=== PATIENT | male | born 1970 | race Caucasian/White ===

== ENCOUNTER 2017-06-29 21:26 | Emergency (ER) | payer MEDICAID ==
--- NOTE | 2017-06-29 22:34 | NUR ---
CALLED FOR TRIAGE; NO ANSWER. INFRMED PT AWOL
== END 2017-06-29 22:35 | disposition left against medical advice (07) ==
LOC: ER 21:30
DX: Z53.21 Procedure and treatment not carried out due to patient leaving prior to being seen by health care provider (principal)

== ENCOUNTER 2017-06-30 09:31 | Emergency (ER) | payer MEDICAID ==
[~2017-06-30] VITALS: Ht 167.6 cm; Wt 117.9 kg
[2017-06-30 09:44] VITALS: BP 160/89
[2017-06-30] MEDS ORDERED: ONDANSETRON HCL/PF 4 MG/2 ML VIAL ONE (10:08)
[2017-06-30] MEDS ORDERED: KETOROLAC TROMETHAMINE 15 MG/ML VIAL ONE (10:08)
--- NOTE | 2017-06-30 10:15 | NUR ---
NEW IV STARTED ON LEFT HAND, 20G, BLOOD DRAWN AND SENT TO LAB.
[2017-06-30 10:17] LABS: BASOPHILS # (AUTO) 0.2 /CMM (0.0-0.2); BASOPHILS % (AUTO) 2.5 % (0.0-2.0); EOSINOPHILS # (AUTO) 0.1 /CMM (0.0-0.7); EOSINOPHILS % (AUTO) 1.5 % (0.0-6.0); HEMATOCRIT 43 % (39-51); HEMOGLOBIN 14.8 g/dL (13.5-17.5); LYMPHOCYTES # (AUTO) 1.6 /CMM (0.8-4.8); LYMPHOCYTES % (AUTO) 22.8 % (20.0-44.0); MEAN CORPUSCULAR HEMOGLOBIN 28 PG (26.0-33.0); MEAN CORPUSCULAR HGB CONC 34 g/dl (31.0-36.0); MEAN CORPUSCULAR VOLUME 83 fL (80-96); MONOCYTES # (AUTO) 0.4 /CMM (0.1-1.30); MONOCYTES % (AUTO) 6.1 % (2.0-12.0); NEUTROPHILS # (AUTO) 4.6 /CMM (1.8-8.9); NEUTROPHILS % (AUTO) 67.1 % (43.0-81.0); PLATELET COUNT (AUTO) 252 /CMM (150-450); RDW COEFFICIENT OF VARIATION 12.8 (11.5-15.0); RED BLOOD CELL COUNT(AUTO) 5.19 MIL/uL (4.5-6.0); WHITE BLOOD COUNT (AUTO) 6.9 K/uL (4.3-11.0)
[2017-06-30 10:26] LABS: CALCIUM, SERUM 8.7 mg/dL (8.5-10.1); POTASSIUM 4.3 mmol/L (3.5-5.1)
--- NOTE | 2017-06-30 10:27 | NUR ---
RT PAGED FOR BREATHING TX.
[2017-06-30] MEDS ORDERED: IV NS 0.9% 1,000 ML BAG IV ONE (10:30)
[2017-06-30] MEDS ORDERED: ALBUTEROL FS 2.5 MG/3 ML VIAL.NEB NEB ONE (10:30)
[2017-06-30] MEDS ORDERED: ONDANSETRON HCL/PF 4 MG/2 ML VIAL IVP ONE (10:30)
[2017-06-30] MEDS ORDERED: KETOROLAC TROMETHAMINE INJ 30 MG/ML VIAL IV ONE (10:30)
[2017-06-30] MEDS ORDERED: ALBUTEROL FS 2.5 MG/3 ML VIAL.NEB ONE (10:33)
[2017-06-30 10:41] LABS: ALBUMIN 3.5 g/dL (3.4-5.0); BILIRUBIN,DIRECT 0.1 mg/dL (0.0-0.2); BILIRUBIN,TOTAL 0.5 mg/dL (0.2-1.0)
== END 2017-06-30 12:47 | disposition home or self-care (01) ==
LOC: ER 09:34
DX: J40 Bronchitis, not specified as acute or chronic (principal); J30.9 Allergic rhinitis, unspecified; E66.01 Morbid (severe) obesity due to excess calories
CPT/HCPCS: 36415; 71045; 80048; 80076; 82962; 83690; 83880; 85025; 93005; 94640; 99285; A4606; J1885; J7030 ×2; Z7610; J2405

== ENCOUNTER 2021-05-20 09:25 | Emergency (ER) | payer MEDICAID ==
[~2021-05-20] VITALS: Ht 170.2 cm; Wt 113.4 kg
[2021-05-20 09:25] VITALS: BP 158/97
[2021-05-20] MEDS ORDERED: PRED50TA PO (09:35)
[2021-05-20] MEDS ORDERED: IBUP-1953 PO (09:35)
== END 2021-05-20 09:45 | disposition home or self-care (01) ==
LOC: ER 09:30
DX: M10.9 Gout, unspecified (principal); I10 Essential (primary) hypertension; Z79.899 Other long term (current) drug therapy

== ENCOUNTER 2021-09-04 10:20 | Emergency (ER) | payer MEDICAID ==
[~2021-09-04] VITALS: Ht 165.1 cm; Wt 113.4 kg
[~2021-09-04 10:20] MED LIST: IBUP-1953 PO; PRED50TA PO
--- NOTE | 2021-09-04 10:39 | NUR ---
BIB SELF C/O R FOOT PAIN 7/ AND SWELLING X 3 DAYS. THE PATIENT DENIES TRAUMA. NO APPARENT DEFORMITY NOTED. WILL CONTINUE TO MONITOR THE PATIENT.
--- NOTE | 2021-09-04 10:41 | NUR ---
DR PORTILLO AT THE BEDSIDE
[2021-09-04] MEDS ORDERED: IBUP-1955 PO (10:59)
[2021-09-04] MEDS ORDERED: PRED50TA PO (10:59)
--- NOTE | 2021-09-04 11:06 | NUR ---
Patient discharged to home in stable condition. Written and verbal after care instructions given. Patient verbalizes understanding of instruction. The patient is picked up by his daughter.
[2021-09-04 11:07] VITALS: BP 155/80
== END 2021-09-04 11:07 | disposition home or self-care (01) ==
LOC: ER 10:20
DX: M10.9 Gout, unspecified (principal); I10 Essential (primary) hypertension; E11.9 Type 2 diabetes mellitus without complications; Z79.899 Other long term (current) drug therapy

== ENCOUNTER 2024-04-29 20:05 | Emergency (ER) | payer MEDICAID ==
[~2024-04-29] VITALS: Ht 170.2 cm; Wt 112.0 kg
[~2024-04-29 20:05] MED LIST changes: -IBUP-1953 PO; +IBUP-1955 PO
[2024-04-29] MEDS ORDERED: CLIN300C3 PO (23:08)
[2024-04-29] MEDS ORDERED: CLINDAMYCIN HCL 150 MG CAPSULE ONE (23:17)
[2024-04-29] MEDS ORDERED: IBUPROFEN 400 MG TABLET ONE (23:17)
[2024-04-29] MEDS: IBUPROFEN 400 MG TABLET PO ONE (23:20)
[2024-04-29] MEDS: CLINDAMYCIN HCL 150 MG CAPSULE PO ONE (23:20)
[2024-04-29 23:22] VITALS: BP 165/99; TEMP 98.7; O2SAT 96
== END 2024-04-29 23:22 | disposition home or self-care (01) ==
LOC: ER 20:43
DX: K04.7 Periapical abscess without sinus (principal); L03.211 Cellulitis of face; E11.9 Type 2 diabetes mellitus without complications; I10 Essential (primary) hypertension; R51.9 Headache, unspecified; R59.9 Enlarged lymph nodes, unspecified; Z79.52 Long term (current) use of systemic steroids; Z86.79 Personal history of other diseases of the circulatory system
CPT/HCPCS: 70486-TC

== ENCOUNTER 2024-05-05 18:16 | Emergency (ER) | payer OTHER ==
[~2024-05-05] VITALS: Ht 170.2 cm; Wt 114.3 kg
[~2024-05-05 18:16] MED LIST changes: +CLIN300C3 PO
[2024-05-05 20:12] LABS: BASOPHILS # (AUTO) 0.1 K/uL (0.0-0.2); BASOPHILS % (AUTO) 1.2 % (0.0-2.0); EOSINOPHILS # (AUTO) 0.2 K/uL (0.0-0.7); EOSINOPHILS % (AUTO) 2.1 % (0.0-6.0); HEMATOCRIT 44 % (39-51); HEMOGLOBIN 14.7 g/dL (13.5-17.5); LYMPHOCYTES # (AUTO) 2.5 K/uL (0.8-4.8); LYMPHOCYTES % (AUTO) 22.2 % (20.0-44.0); MEAN CORPUSCULAR HEMOGLOBIN 29 PG (26.0-33.0); MEAN CORPUSCULAR HGB CONC 34 g/dl (31.0-36.0); MEAN CORPUSCULAR VOLUME 87 fL (80-96); MONOCYTES # (AUTO) 0.7 K/uL (0.1-1.30); MONOCYTES % (AUTO) 6.5 % (2.0-12.0); NEUTROPHILS # (AUTO) 7.8 K/uL (1.8-8.9); PLATELET COUNT (AUTO) 421 K/uL (150-450); RED BLOOD CELL COUNT(AUTO) 5.06 MIL/uL (4.5-6.0); RED CELL DISTRIBUTION WIDTH 13.5 % (11.5-15.0); WHITE BLOOD COUNT (AUTO) 11.4 K/uL (4.3-11.0)
[2024-05-05 20:21] LABS: CALCIUM, SERUM 9.6 mg/dL (8.5-10.1); CREATININE 1.2 mg/dL (0.6-1.3)
[2024-05-05] MEDS ORDERED: IOHEXOL-300 100 ML VIAL IV ONE (20:28)
[2024-05-05] MEDS ORDERED: IV NS 0.9% 250 ML IV ONE (20:28)
[2024-05-05 21:11] LABS: C-REACTIVE PROTEIN 1.54 mg/dL (0.0-0.30)
[2024-05-05 21:27] LABS: ERYTHROCYTE SEDIMENTATION RATE 62 MM/HR (0-20)
[2024-05-05 22:23] VITALS: BP 148/88; TEMP 98.2; O2SAT 99
== END 2024-05-05 22:23 | disposition home or self-care (01) ==
LOC: ER 18:20
DX: L03.211 Cellulitis of face (principal); R51.9 Headache, unspecified; E11.9 Type 2 diabetes mellitus without complications; I10 Essential (primary) hypertension; Z79.52 Long term (current) use of systemic steroids; Z86.79 Personal history of other diseases of the circulatory system
CPT/HCPCS: 99285; 70487; 85025; 80048; 85652; 36415; 86140; J7050; Q9967

== ENCOUNTER 2024-07-13 19:38 | Emergency (ER) | payer OTHER ==
[~2024-07-13] VITALS: Ht 170.2 cm; Wt 111.6 kg
[2024-07-13] MEDS ORDERED: HYDROCODONE/APAP 5/325MG TABLET ONE (20:31)
[2024-07-13] MEDS: HYDROCODONE/APAP 5/325MG TABLET PO ONE (20:36)
[2024-07-13] MEDS ORDERED: HYDR-4209 PO (21:28)
[2024-07-13 21:51] VITALS: BP 145/88; TEMP 98; O2SAT 100
== END 2024-07-13 21:51 | disposition home or self-care (01) ==
LOC: ER 19:41
DX: S53.401A Unspecified sprain of right elbow, initial encounter (principal); I10 Essential (primary) hypertension; E11.9 Type 2 diabetes mellitus without complications; Z79.52 Long term (current) use of systemic steroids; Z79.899 Other long term (current) drug therapy; X58.XXXA Exposure to other specified factors, initial encounter; Y93.89 Activity, other specified; Y92.89 Other specified places as the place of occurrence of the external cause; Y99.8 Other external cause status
CPT/HCPCS: 73080-TC